=== PATIENT | male | born 1975 | race Caucasian/White ===

== ENCOUNTER 2016-10-01 15:18 | Emergency (ER) | payer SELFPAY ==
[~2016-10-01] VITALS: Ht 177.8 cm; Wt 79.9 kg
[2016-10-01 15:31] VITALS: BP 126/76; PULSE 71; RESP 16; TEMP 99.1; O2SAT 96
[2016-10-01] MEDS ORDERED: IBUP400T20 PO (15:37)
--- NOTE | 2016-10-01 16:36 | PD ---
HPI Chief Complaint: Cold / Flu Symptoms Time Seen by Provider: 16:31 Travel History International Travel<30 days: No Contact w/Intl Traveler<30days: No Traveled to known affect area: No History of Present Illness HPI 41-year-old male presents to the emergency room for evaluation of cough, congestion, sore throat, body aches, and chills for the past 4 days. Cough is the worst in the morning when he wakes up. He has green purulent drainage from nose and occasionally coughs it up. Patient has been taking ibuprofen for symptoms but no other ocod-xyd-tswrdms medications. Denies objective fever, nausea, vomiting. States he has been working extra hard lately which may be worsening of symptoms. PFSH Past Medical History Diminished Hearing: No Immunizations Current: Yes Influenza Vaccination: No Past Surgical History Body Medical Devices: CHRONIC BACK PAIN Social History Alcohol Use: No Tobacco Use: Yes (09/04 PPD) Substance Use: No Allergies-Medications (Allergen,Severity, Reaction): Coded Allergies: No Known Allergies (Verified , 10/01/16) Reported Meds & Prescriptions Reported Meds & Active Scripts Active Reported Ibuprofen 400 Mg Tab 400 Mg PO ONCE Review of Systems Except as stated in HPI: all other systems reviewed are Neg Physical Exam Narrative GENERAL: Well-nourished, well-developed male in no acute distress. Afebrile. Ambulatory. SKIN: Warm and dry. HEAD: Normocephalic. EYES: No scleral icterus. No injection or drainage. NECK: Supple, trachea midline. No JVD or lymphadenopathy. ENT: Mucosa pink and moist. Mild erythema without edema or exudates. No uvular edema. No uvular, palatal, or tonsillar deviation. Airway patent. Nasal turbinates appear normal without nasal blood, purulent drainage or septal hematoma. EARS: Bilateral pinnae and external canals appear within normal limits. Bilateral tympanic membranes without erythema, dullness or perforation. CARDIOVASCULAR: Regular rate and rhythm without murmurs, gallops, or rubs. RESPIRATORY: Breath sounds equal bilaterally. No accessory muscle use. No crackles, rales, wheezes, or rhonchi. Data Data Last Documented VS Vital Signs Date Time Temp Pulse Resp B/P Pulse Ox O2 Delivery O2 Flow Rate FiO2 10/01/16 15:31 99.1 71 16 126/76 96 MDM Medical Decision Making Medical Screen Exam Complete: Yes Emergency Medical Condition: Yes Medical Record Reviewed: Yes Differential Diagnosis URI versus influenza versus pneumonia versus bronchitis versus sinusitis Narrative Course 41-year-old male presents to the emergency room for evaluation of cold and flu symptoms for the past 4 days. Patient is afebrile and well-appearing in the emergency room. Vital signs stable. Lungs sounds clear and equal bilaterally. No evidence of bacterial infection in the ears, nose, or throat. History and physical exam are consistent with influenza however patient is outside the 2 day window to treat so testing would be of no value. He was told to continue [id number]-psz-[id number] medications for symptoms and follow up with the primary care physician if symptoms persist or return to the emergency room for worsening symptoms. He understands and agrees to plan. Diagnosis Primary Impression: Upper respiratory infection Qualified Code: J00 - Acute nasopharyngitis Referrals: Primary Care Physician Patient Instructions: General Instructions, Upper Respiratory Infection (ED) Departure Forms: Tests/Procedures, Work Release Enter return to work date: Oct 02, 2016 Additional Instructions: Rest and drink plenty of fluids. Take [id number]-ymj-[id number] cough and cold medications as directed, as needed for symptoms. Take ibuprofen with food as directed, as needed for pain.ing. Follow-up with a primary care physician if symptoms persist past 10 days. Return to the emergency room for worsening symptoms. Disposition: 01 DISCHARGE HOME Condition: Stable Jacquelyn Tolliver Oct 01, 2016 16:36
== END 2016-10-01 16:49 | disposition home or self-care (01) ==
LOC: PHEFT 15:18
DX: J00 Acute nasopharyngitis [common cold] (principal)
CPT/HCPCS: 99283

== ENCOUNTER 2016-11-26 11:22 | Emergency (ER) | payer SELFPAY ==
[~2016-11-26] VITALS: Ht 177.8 cm; Wt 76.0 kg
[~2016-11-26 11:22] MED LIST: IBUP400T20 PO
[2016-11-26 11:26] VITALS: BP 197/78; PULSE 61; RESP 16; TEMP 99; O2SAT 99
--- NOTE | 2016-11-26 11:47 | PD ---
HPI Chief Complaint: Musculoskeletal Complaint Time Seen by Provider: 11:35 Travel History International Travel<30 days: No Contact w/Intl Traveler<30days: No Traveled to known affect area: No History of Present Illness HPI 41-year-old male presents to emergency department status post sudden onset left inguinal pain. 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 Patient states he went home and felt well until he laid down for a while, and it had sudden onset of pain in the left groin with pain radiating into the left testicle and upper thigh. His states that he did have a lump in this area at that time. Patient denies fever, chills, or changes in his bowels or bladder. He has no urethral discharge. No dysuria. Currently his pain is still present which she describes as a 6/10, which is worse with ambulation. There is no visible lump at this time. Patient denies numbness, tingling, or other symptoms. He has no known drug allergies. PFSH Past Medical History Diminished Hearing: No Immunizations Current: Yes Past Surgical History Body Medical Devices: CHRONIC BACK PAIN Social History Alcohol Use: No Tobacco Use: Yes (/2 PPD) Substance Use: No Allergies-Medications (Allergen,Severity, Reaction): Coded Allergies: No Known Allergies (Verified , 11/26/16) Reported Meds & Prescriptions Reported Meds & Active Scripts Active Orphenadrine CR (Orphenadrine Citrate) 100 Mg Tab 100 Mg PO Q12HR Ibuprofen 800 Mg Tab 800 Mg PO Q8H PRN Acetaminophen Extra Strength (Acetaminophen) 500 Mg Cap 1,000 Mg PO Q6H PRN Review of Systems Except as stated in HPI: all other systems reviewed are Neg General / Constitutional: No: Fever Eyes: No: Visual changes HENT: No: Headaches Cardiovascular: No: Chest Pain or Discomfort Respiratory: No: Shortness of Breath Gastrointestinal: No: Abdominal Pain Genitourinary: No: Dysuria Musculoskeletal: No: Pain Skin: No Rash Neurologic: No: Weakness Psychiatric: No: Depression Endocrine: No: Polydipsia Hematologic/Lymphatic: No: Easy Bruising Physical Exam Narrative GENERAL: Patient appears in dqqi-wl-jsxohcse distress. He is walking guardedly. SKIN: Warm and dry. Normal color. Normal turgor. No rash. HEAD: Atraumatic. Normocephalic. EYES: Pupils equal and round. No scleral icterus. No injection or drainage. ENT: No nasal bleeding or discharge. Mucous membranes pink and moist. Pharynx is clear. NECK: Trachea midline. Supple and nontender. CARDIOVASCULAR: Regular rate and rhythm. RESPIRATORY: No accessory muscle use. Clear to auscultation. Breath sounds equal bilaterally. GASTROINTESTINAL: Abdomen soft, non-tender, nondistended. Hepatic and splenic margins not palpable. No CVA tenderness. GENITALIA: Patient is tenderness along the left inguinal ligament, without palpable hernia. No significant testicular discomfort or swelling. Questionable sliding left hernia with cough. MUSCULOSKELETAL: Extremities without clubbing, cyanosis, or edema. No obvious deformities. NEUROLOGICAL: Awake and alert. No obvious cranial nerve deficits. Motor grossly within normal limits. Five out of 5 muscle strength in the arms and legs. Normal speech. PSYCHIATRIC: Appropriate mood and affect; insight and judgment normal. Data Data Last Documented VS Vital Signs Date Time Temp Pulse Resp B/P Pulse Ox O2 Delivery O2 Flow Rate FiO2 11/26/16 11:26 99.0 61 16 197/78 99 Orders Mandatory Outpatient Referral (11/26/16 11:48) [facility] Medical Decision Making Medical Screen Exam Complete: Yes Emergency Medical Condition: Yes Differential Diagnosis Left groin pull. Left inguinal hernia. Abdominal pain. Narrative Course Patient is medically stable at time of exam. Patient with patient's history and physical I think he probably does have an inguinal hernia which is sliding in nature. He could just have a groin pull, but radiographic imaging is not felt beneficial at this time. Patient will be treated conservatively with ibuprofen 800 mg 3 times daily with food #30. Patient is also given acetaminophen 500 mg 2 tabs every 6 hours when necessary # 60. Patient is also given Norflex 100 mg at bedtime #10. Patient is given a note for work with restrictions for the next week. A mandatory follow-up with his placed with Dr. Birch, for evaluation for possible inguinal hernia. Patient can return to emergency department at any time with worsening symptoms as discussed. Diagnosis Primary Impression: Left inguinal pain Referrals: Mike Holman MD Patient Instructions: General Instructions, Groin Strain (ED), Inguinal Hernia (ED) Departure Forms: Work Release Special Instructions: Patient should have no lifting greater than 10 pounds 1 week. Additional Instructions: Patient with patient's history and physical I think he probably does have an inguinal hernia which is sliding in nature. He could just have a groin pull, but radiographic imaging is not felt beneficial at this time. Patient will be treated conservatively with ibuprofen 800 mg 3 times daily with food #30. Patient is also given acetaminophen 500 mg 2 tabs every 6 hours when necessary # 60. Patient is also given Norflex 100 mg at bedtime #10. Patient is given a note for work with restrictions for the next week. A mandatory follow-up with his placed with Dr. Birch, for evaluation for possible inguinal hernia. Patient can return to emergency department at any time with worsening symptoms as discussed. Med/Other Pt SpecificInfo: Prescription(s) given Scripts Orphenadrine ER 12 HR (Orphenadrine CR)100 Mg [id number] Mg PO Q12HR #10 TAB Prov:Thalia Stanley MD 11/26/16 Ibuprofen 800 Mg [id number] Mg PO Q8H PRN (Pain/Inflammation) #30 TAB Prov:Thalia Stanley MD 11/26/16 Acetaminophen (Acetaminophen Extra Strength)500 Mg Cap1,000 Mg PO Q6H PRN (PAIN SCALE 4 TO 10) #60 CAP Ref 1 Prov:Thalia Stanley MD 11/26/16 Disposition: 01 DISCHARGE HOME Condition: Stable Mike Wray Nov 26, 2016 11:47
[2016-11-26] MEDS ORDERED: EXTR500C PO (11:48)
[2016-11-26] MEDS ORDERED: IBUP800T23 PO (11:48)
[2016-11-26] MEDS ORDERED: ORPH100T99 PO (11:48)
== END 2016-11-26 12:04 | disposition home or self-care (01) ==
LOC: PHEFT 11:22
DX: R10.32 Left lower quadrant pain (principal); F17.210 Nicotine dependence, cigarettes, uncomplicated; G89.29 Other chronic pain; M54.9 Dorsalgia, unspecified
CPT/HCPCS: 99283